=== PATIENT | female | born 1985 | race Caucasian/White ===

== ENCOUNTER 2019-08-18 12:34 | Emergency (ER) | payer OTHER ==
[~2019-08-18] VITALS: Ht 162.6 cm; Wt 69.9 kg
--- NOTE | 2019-08-18 12:40 | NUR ---
PATIENT AMBULATED TO BED 1.
[2019-08-18 12:43] VITALS: BP 126/75
--- NOTE | 2019-08-18 13:01 | NUR ---
Patient being evaluated by DR PEÑALOZA at bedside.
[2019-08-18 13:06] LABS: APPEARANCE,URINE CLEAR (CLEAR); BILIRUBIN,URINE NEGATIVE (NEGATIVE); BLOOD, URINE NEGATIVE (NEGATIVE); COLOR,URINE YELLOW (YELLOW); LEUKOCYTE ESTERASE ,URINE TRACE (NEGATIVE); NITRITE, URINE NEGATIVE (NEGATIVE); PH,URINE 6.5 (5.0-9.0); UGLUCOSE NEGATIVE (NEGATIVE)
--- NOTE | 2019-08-18 13:10 | NUR ---
34/F presents to ED c/o lower abd pain c/o urinary frequency since Saturday. Patient denies any dysuria. Denies hematuria. Pt reports frequent urination without any foul odor. Denies fever or chills. Denies N/V/D. AOX4. Ambulatory with steady gait. VSS.
--- NOTE | 2019-08-18 13:13 | NUR ---
Pt report given to Marlin CHILDRESS. Transfer of care at this time.
[2019-08-18 13:37] LABS: RBC,URINE NONE SEEN /HPF (0-5); WBC,URINE 0-5 /HPF (0-5)
--- NOTE | 2019-08-18 14:15 | NUR ---
PT SITTING IN CHAIR, VSS AT THIS TIME. ALERT AND ORIENTED.
[2019-08-18 14:18] LABS: BASOPHILS % (AUTO) 0.5 % (0.0-2.0); EOSINOPHILS # (AUTO) 0.7 K/uL (0-0.4); EOSINOPHILS % (AUTO) 8.5 % (0.0-4.0); HEMATOCRIT 39.3 % (36-48); HEMOGLOBIN 12.9 g/dL (12.0-16.0); LYMPHOCYTES # (AUTO) 1.6 K/uL (2.5-16.5); LYMPHOCYTES % (AUTO) 18.6 % (20.5-51.1); MEAN CORPUSCULAR HEMOGLOBIN 29 pg (27-31); MEAN CORPUSCULAR HGB CONC 33 g/dL (33-37); MEAN CORPUSCULAR VOLUME 89.2 fL (80-94); MONOCYTES # (AUTO) 0.5 K/uL (0.8-1.0); MONOCYTES % (AUTO) 5.9 % (1.7-9.3); NEUTROPHILS # (AUTO) 5.8 K/uL (1.8-7.7); NEUTROPHILS % (AUTO) 66.5 % (42.2-75.2); PLATELET COUNT (AUTO) 224 K/uL (140-450); RED CELL DISTRIBUTION WIDTH 13.3 % (11.6-13.7); WHITE BLOOD COUNT (AUTO) 8.7 K/uL (4.8-10.8)
[2019-08-18 15:09] LABS: ALBUMIN 3.9 g/dL (3.4-5.0); ANION GAP 11.1 (8-16); CARBON DIOXIDE 28.5 mmol/L (21-32); CREATININE 0.6 mg/dL (0.6-1.3); POTASSIUM 3.6 mmol/L (3.5-5.1); TOTAL BILIRUBIN 0.3 mg/dL (0.0-1.0)
--- NOTE | 2019-08-18 15:36 | NUR ---
PT AMBULATED TO BATHROOM.
--- NOTE | 2019-08-18 15:52 | NUR ---
Patient discharged with v/s stable. Written and verbal after care instructions given and explained. Patient alert, oriented and verbalized understanding of instructions. Ambulatory with to home. All questions addressed prior to discharge. ID band removed. Patient advised to follow up with PMD. Rx of 600 MG MOTRIN given. Patient educated on indication of medication including possible reaction and side effects. Opportunity to ask questions provided and answered. PT ACCOMPANIED BY
[2019-08-18 15:53] VITALS: BP 125/78
== END 2019-08-18 15:52 | disposition home or self-care (01) ==
LOC: MED 12:34
DX: R10.31 Right lower quadrant pain (principal); F41.9 Anxiety disorder, unspecified
CPT/HCPCS: 36415; 80053; 81001; 81025; 83690; 85025; 99284

== ENCOUNTER 2023-05-21 12:15 | Emergency (ER) | payer OTHER ==
--- NOTE | 2023-05-21 13:00 | NUR ---
NO ANSWER IN LOBBY, LOOKED IN BATHROOMS, AND OUTSIDE ER
--- NOTE | 2023-05-21 13:20 | NUR ---
NO ANSWER IN LOBBY, BATHROOMS, OUTSIDE OF ER.
--- NOTE | 2023-05-21 13:56 | NUR ---
NO ANSWER IN LOBBY, BATHROOMS, OUTSIDE OF ER. PT. LEFT WITHOUT TRIAGE
--- NOTE | 2023-05-21 14:00 | NUR ---
Pt. called in ER lobby and no answer received. Called pt.'s name outside ER and no answer received. Checked bathroom and pt. was not found. Pt. left ER without triage. ER MD notified.
== END 2023-05-21 13:00 | disposition left against medical advice (07) ==
LOC: MED 12:15
DX: Z53.21 Procedure and treatment not carried out due to patient leaving prior to being seen by health care provider (principal)

== ENCOUNTER 2023-05-22 22:04 | Emergency (ER) | payer OTHER ==
[~2023-05-22] VITALS: Ht 162.6 cm; Wt 86.2 kg
[2023-05-22 22:25] VITALS: BP 138/90; PULSE 76; RESP 15; TEMP 97.7; O2SAT 100
--- NOTE | 2023-05-22 22:31 | NUR ---
pt to henri roewll
--- NOTE | 2023-05-22 22:40 | NUR ---
MD Starks assessing pt.
[2023-05-22 23:11] LABS: BASOPHILS # (AUTO) 0.1 K/uL (0.00-0.22); EOSINOPHILS # (AUTO) 0.6 K/uL (0-0.4); EOSINOPHILS % (AUTO) 6.2 % (0.0-4.0); HEMATOCRIT 38.6 % (36-48); HEMOGLOBIN 12.7 g/dL (12.0-16.0); LYMPHOCYTES # (AUTO) 2.8 K/uL (2.5-16.5); LYMPHOCYTES % (AUTO) 27.4 % (20.5-51.1); MEAN CORPUSCULAR HEMOGLOBIN 29 pg (27-31); MEAN CORPUSCULAR HGB CONC 33 g/dL (33-37); MEAN CORPUSCULAR VOLUME 87.1 fL (80-94); MONOCYTES # (AUTO) 0.7 K/uL (0.8-1.0); MONOCYTES % (AUTO) 6.5 % (1.7-9.3); NEUTROPHILS # (AUTO) 5.9 K/uL (1.8-7.7); NEUTROPHILS % (AUTO) 58.9 % (42.2-75.2); PLATELET COUNT (AUTO) 295 K/uL (140-450); RED BLOOD CELL COUNT(AUTO) 4.44 MIL/uL (4.20-5.40); RED CELL DISTRIBUTION WIDTH 13.3 % (11.6-13.7); WHITE BLOOD COUNT (AUTO) 10.1 K/uL (4.8-10.8)
[2023-05-22 23:17] LABS: APPEARANCE,URINE CLEAR (CLEAR); BILIRUBIN,URINE NEGATIVE (NEGATIVE); BLOOD, URINE NEGATIVE (NEGATIVE); COLOR,URINE YELLOW (YELLOW); LEUKOCYTE ESTERASE ,URINE NEGATIVE (NEGATIVE); NITRITE, URINE NEGATIVE (NEGATIVE); UGLUCOSE NEGATIVE (NEGATIVE)
[2023-05-22 23:33] LABS: ALBUMIN 3.9 g/dL (3.4-5.0); ANION GAP 12.9 (8-16); CREATININE 0.7 mg/dL (0.6-1.3); POTASSIUM 3.9 mmol/L (3.5-5.1); TOTAL BILIRUBIN 0.3 mg/dL (0.0-1.0)
[2023-05-23] MEDS ORDERED: LORazepam 1 MG TAB PO ONE (00:50)
[2023-05-23] MEDS ORDERED: ONDANSETRON 4 MG ODT PO ONE (00:50)
[2023-05-23] MEDS ORDERED: DICYCLOMINE 10 MG CAP PO ONE (00:50)
[2023-05-23] MEDS ORDERED: IMO2 PO (01:15)
[2023-05-23] MEDS ORDERED: ONDA-188 PO (01:15)
[2023-05-23] MEDS ORDERED: BEN10 PO (01:15)
--- NOTE | 2023-05-23 01:15 | NUR ---
Pt medicated as ordered; tolerated well.
[2023-05-23 01:45] VITALS: BP 124/83; PULSE 70; RESP 16; TEMP 97.8; O2SAT 100
--- NOTE | 2023-05-23 01:45 | NUR ---
Patient discharged with v/s stable. Written and verbal after care instructions given and explained. Patient alert, oriented and verbalized understanding of instructions. All questions addressed prior to discharge. ID band removed. Patient advised to follow up with PMD. Rx of Bentyl, Loperamide, Zofran sent to preferred pharmacy. Patient educated on indication of medication including possible reaction and side effects. Opportunity to ask questions provided and answered.
== END 2023-05-23 01:45 | disposition home or self-care (01) ==
LOC: MED 22:04
DX: A08.4 Viral intestinal infection, unspecified (principal); J45.909 Unspecified asthma, uncomplicated; Z79.899 Other long term (current) drug therapy
CPT/HCPCS: 36415; 80053; 81003; 81025; 83690; 85025; 99283; Q0162